=== PATIENT | male | born 1955 | race Caucasian/White ===

== ENCOUNTER 2024-01-29 13:04 | Emergency (ER) | payer MEDICARE, OTHER, SELFPAY ==
[2024-01-29 13:04] VITALS: BMI 31.0
[2024-01-29 13:41] LABS: % Basophils 0.2 % (0-2); % Eosinophils 0.2 % (0-6); % Immature Granulocytes 0.2 % (0-0.5); % Lymphocytes 8.8 % (20.5-51.1); % Monocytes 10.2 % (1.7-9.3); % Neutrophils 80.4 % (42.2-75.2); Absolute Lymphocytes 1.1 10^3/uL (1.2-3.4); Absolute Monocytes 1.3 10^3/uL (0.1-0.6); Absolute Neutrophils 10.1 10^3/uL (1.4-6.5); Hematocrit 35.4 % (39.0-52.0); Hemoglobin 11.8 g/dL (13.0-18.0); Mean Corp Hgb Conc. 33.3 g/dL (33.0-37.0); Mean Corpuscular Hgb 25.9 pg (27.0-31.0); Mean Corpuscular Volume 77.6 fL (80.0-94.0); Mean Platelet Volume 10.2 fL (7.4-10.4); Nucleated Red Blood Cells % 0 % (-); Platelet Count 298 10^3/uL (130-400); Red Blood Cell Count 4.56 10^6/uL (4.70-6.10); Red Cell Dist. Width 15.4 % (11.5-14.5); White Blood Cell Count 12.6 10^3/uL (4.8-10.8)
[2024-01-29 13:57] LABS: Lactic Acid 1.3 mmol/L (0.7-2.0)
[2024-01-29 14:20] LABS: ALT (SGPT) 102 U/L (0-50); AST (SGOT) 157 U/L (17-59); Alkaline Phosphatase 147 U/L (38-126); Blood Urea Nitrogen 10 mg/dl (9-20); Calcium 8.9 mg/dl (8.4-10.2); Carbon Dioxide 21 mmol/L (22-30); Chloride 99 mmol/L (98-107); Glucose 143 mg/dl (70-99); Potassium 3.8 mmol/L (3.5-5.1); Sodium 135 mmol/L (135-145); Total Bilirubin 1.7 mg/dl (0.2-1.3); Total Protein 7.8 g/dl (6.3-8.2); eGFR > 60.00
--- NOTE | 2024-01-29 18:03 | ED.GENMED ---
History of Present Illness
General
Chief Complaint: Weakness
Source: patient
Exam Limitations: none
Time Seen by Provider: 01/29/24 17:50
Nursing documentation reviewed up to this point in time: agreed with
Travel History
Have you had any contact with someone who has COVID-19?: No
Do you have any symptoms of coronavirus? Fever > 100 degrees, chills, cough, shortness of breath, sore throat, loss of taste or smell, muscle aches, or headache?: No
History of Present Illness
History of Present Illness:
68 yo male with h/o MS, GERD, partial thyroidectomy, 3 right hip surgeries, right hip replacement, two hip spacers placed, last one October 2023, presents stating significant fatigue and weakness and anorexia past 5 days. Has been doing P/T at home,
VN 3 x a week to change his wound vac. Wound healing well. Denies fever/chills, denies pain at wound site. Denies CP, SOB, abdominal pain.
He reports 3 days ago he was in his kitchen filling his water container, lost his balance and fell, no significant injury, called his medical provider who called 911, they came and helped him up, determined no significant injury and no need for
medical clearance.
Past History
Past History
ED Past Medical History: NIDDM and Other (MS)
ED Past Surgical History: None
Social History
Tobacco: Non-smoker
Alcohol: Daily
Drug: None
Personal:
Living: with family
Employment: Employed
Review of Systems
Review of Systems
Allergies reviewed?: Yes
All Other Systems: ROS reviewed and negative except as documented in HPI and ROS
Constitutional: Reports fatigue; Denies fever
Respiratory: Denies trouble breathing
Cardiac: Denies chest pain
ABD/GI: Reports anorexia; Denies abdominal pain, nausea, vomiting, diarrhea or constipated
: Reports dark urine; Denies dysuria, frequency, flank pain, difficulty voiding or urgency
Musculoskeletal: Reports no symptoms
Skin: Reports other (Wound VAC intact right lateral hip)
Neurological: Reports no symptoms
Phy Exam
Physical Exam
Physical Exam:
GENERAL: No acute distress. A&Ox3.
CONSTITUTIONAL: Temp 100.3.
EYES: Clear, conjunctivae normal
ENMT: moist mucus membranes, Pharynx nl
RESPIRATORY: Regular respirations, nonlabored, lungs clear.
CARDIOVASCULAR: Regular rate and rhythm, no murmurs, no rubs.
GI: Soft, nontender, normal BS
MUSCULOSKELETAL: Moves with ease. Well perfused.
SKIN: Warm, dry, pink. Wound vac intact lateral right hip, no surrounding redness or warmth
PSYCH: Normal mood and affect. Well kept, interactive and appropriate
NEUROLOGIC: Awake, alert and oriented. No focal neurological deficits
Course
Orders/Labs/Results
Orders:
Orders
01/29/24 13:21
Complete Blood Count/With Diff Urgent
Comprehensive Metabolic Panel Urgent
Lactic Acid Urgent
Lipase Urgent
Blood Culture Urgent
MANISHA Source: Blood/Venous
Specimen Description:
01/29/24 17:51
Urinalysis Reflex To Culture Urgent
Date Specimen was Collected: 01/29/24
Time Specimen was Collected: 17:49
Urine Microscopic Reflex Cult Urgent
Urine Culture Urgent
MANISHA Source: U
Specimen Description:
Date Specimen was Collected: 01/29/24
Time Specimen was Collected: 17:49
01/29/24 18:40
US Abdomen Complete/Upper Urgent
Comment:
Reason For Exam: elevated bilirubing, LFTs, dark urine, anorexia
01/29/24 20:25
Add On- LAB Urgent
Tests Added?: Lipase
01/29/24 21:05
0.9% Sodium Chloride 1000 ml [Nss] 1,000 ml IV BOLUS
Abnormal Lab Results
01/29/24 01/29/24
13:21 17:51
WBC 12.6 H 10^3/uL
(4.8-10.8)
RBC 4.56 L 10^6/uL
(4.70-6.10)
Hgb 11.8 L g/dL
(13.0-18.0)
Hct 35.4 L %
(39.0-52.0)
MCV 77.6 L fL
(80.0-94.0)
MCH 25.9 L pg
(27.0-31.0)
RDW 15.4 H %
(11.5-14.5)
Absolute Neuts (auto) 10.1 H 10^3/uL
(1.4-6.5)
Absolute Lymphs (auto) 1.1 L 10^3/uL
(1.2-3.4)
Absolute Monos (auto) 1.3 H 10^3/uL
(0.1-0.6)
Neutrophils % 80.4 H %
(42.2-75.2)
Lymphocytes % 8.8 L %
(20.5-51.1)
Monocytes % 10.2 H %
(1.7-9.3)
Carbon Dioxide 21 L mmol/L
(22-30)
Creatinine 0.6 L mg/dL
(0.7-1.3)
Glucose 143 H mg/dl
(70-99)
Total Bilirubin 1.7 H mg/dl
(0.2-1.3)
AST 157 H U/L
(17-59)
ALT 102 H U/L
(0-50)
Alkaline Phosphatase 147 H U/L
(38-126)
Urine Ketones Trace A
(Negative)
Ur Occult Blood Reflex Trace A
(Negative)
Urine Bilirubin 1+ A
(Negative)
Urine Urobilinogen 3+ A
(Neg - 1+)
Leukocyte Esterase Rfl Trace A
(Negative)
Urine Bacteria (Reflex) Moderate A
(Negative)
01/29/24 13:21
01/29/24 13:21
Vital Signs
Initial and Last Documented VS:
Initial Vital Signs
Temp Pulse Resp Pulse Ox
100.3 F 63 20 97
01/29/24 13:05 01/29/24 13:05 01/29/24 13:05 01/29/24 13:05
Last Documented Vital Signs
Temp Pulse Resp BP Pulse Ox
100.3 F 80 16 123/80 97
01/29/24 13:05 01/29/24 21:00 01/29/24 21:00 01/29/24 20:39 01/29/24 21:00
[employer]ogn[employer] Consultant consulted with Physician
[employer] Consultant consulted with physician?: Yes
Name of Physician Consulted: Luh
MDM/Problems Addressed
Differential Diagnosis Includes:
Dehydration, UTI, cellulitis/infected wound, viral illness
MDM/Problems Addressed:
68 yo male with h/o MS, GERD, partial thyroidectomy, 3 right hip surgeries, right hip replacement, two hip spacers placed, last one October 2023, presents stating significant fatigue and weakness and anorexia past 5 days. Has been doing P/T at home,
VN 3 x a week to change his wound vac. Wound healing well. Denies fever/chills, denies pain at wound site. Denies CP, SOB, abdominal pain.
Temp 100.3, NAD
6:00 p.m.
CBC: WBC 12.6 w neutrophils
CMP: Mildly Elevated liver enzymes. He denies use of Tylenol
U/A: Neg for infection
Lipase WNL
Discussed with Dr. Arvizu. Will get US upper abdomen to r/o GB disease
8:20 PM
US upper abdomen radiology report read: IMPRESSION: Mild hepatomegaly
Contracted gallbladder. Therefore not fully evaluated
Nonvisualization of pancreas, proximal IVC and abdominal aorta.
Pt family in, state he was around a lot of people Memorial day. He may have a mild viral illness vs dehydration causing the elevated liver enzymes and low grade fever
Temp rechecked : 99.0 po
Out pt lab slip given to have CMP repeated in 7-10 days
Encouraged to drink plenty of fluids in the meantime.
Dr. Arvizu agrees with plan.
*Critical Care Note
Total Time (30-74mins, 75-104mins- exclusive of procedures): Not Applicable
ED Attending Note
-
Portions of this chart may have been created with voice recognition software.� Occasional wrong word or��sound alike� substitutions may have occurred due to the inherent limitations of voice recognition software.
Discharge Plan
Departure
Patient Disposition: Home (Routine Discharge)
Date of Disposition: 01/29/24
Time of Disposition: 21:21
Patient with high blood pressure during this ER visit?: No
Condition: Good
Discharge Problem:
Fatigue, Dehydration, mild, Elevated liver enzymes
Instructions: Generalized Weakness (DC), Dehydration, Adult ED
Prescriptions:
No Action
omeprazole 40 mg Capsule,Delayed Release(Dr/Ec)
40 mg PO DAILY
tamsulosin 0.4 mg Capsule
0.4 mg PO HS
acetaminophen [Tylenol] 325 mg Tablet
325 mg PO ONCE PRN (Reason: headache)
Referrals:
Ramirez Barragan MD [Family Provider] - Follow up in 10 days
Activity Restrictions/Additional Instructions:
As we discussed, your mildly elevated liver enzymes may be due to dehydration and/or mild viral illness. Drink at least 6 glasses of water/fluids daily and have your lab work rechecked in 7 to 10 days.
Take the lab slip I gave you to the outpatient registration at the main entrance to get your lab work done.
Your wound looks good, no sign of infection.
Interventions
Interventions:
*Risk Screen - Suicide Last Done: 01/29/24 13:05
*General Assessment Last Done: 01/29/24 13:05
*Neglect/Abuse Screening Last Done: 01/29/24 13:05
ED- Fall Risk Assessment Last Done: 01/29/24 18:54
ED- Cardiac Assessment Last Done: 01/29/24 18:54
ED- Neurological Assessment Last Done: 01/29/24 18:54
ED- Pulmonary Assessment Last Done: 01/29/24 18:54
Discharge Date and Time
Print Language: [id number]
[2024-01-29 18:41] VITALS: BP 114/65
[2024-01-29 19:14] LABS: Urine Albumin Trace (Neg - Trace); Urine Bilirubin 1+ (Negative); Urine Character Clear (Clear); Urine Color Amber; Urine Glucose Negative (Negative); Urine Ketone Trace (Negative); Urine Leukocyte Trace (Negative); Urine Nitrite Negative (Negative); Urine Occult Blood Trace (Negative); Urine Urobilinogen 3+ (Neg - 1+)
[2024-01-29 19:27] LABS: Urine Bacteria Moderate (Negative); Urine Mucus Moderate; Urine Red Blood Cell 0-2 /HPF (0-2); Urine White Cell 0-2 /HPF (0-5)
[2024-01-29 20:39] VITALS: BP 123/80
[2024-01-29 21:00] VITALS: BP 130/68
[2024-01-29 21:03] LABS: Lipase 161 U/L (23-300)
[2024-01-29] MEDS: NSS 1000 IV (21:08)
== END 2024-01-29 22:06 | disposition home or self-care (01) ==
LOC: EMR 13:04
PROVIDERS: Emergency Medicine; EMERGENCY PHYSICIAN Emergency Medicine; FAMILY PHYSICIAN Family Medicine
DX: E86.0 Dehydration (principal); R53.83 Other fatigue; R74.8 Abnormal levels of other serum enzymes
CPT/HCPCS: 99284; 96360; 76700; 80053; 81003; 81015; 83605; 83690; 85025; 87040; 87086